=== PATIENT | male | born 1945 | race Caucasian/White ===

== ENCOUNTER 2021-03-24 19:38 | Inpatient (IN) | payer MEDICARE ==
[~2021-03-24] VITALS: Ht 182.9 cm; Wt 79.1 kg
[2021-03-24 20:11] LABS: BASOPHILS % (AUTO) 0.5 % (0-1); EOSINOPHILS # (AUTO) 0.2 X10'3 (0-0.9); EOSINOPHILS % (AUTO) 2.8 % (0-6); HEMATOCRIT 42.1 % (42.0-52.0); HEMOGLOBIN 14.4 g/dl (14.0-17.9); LYMPHOCYTES # (AUTO) 1.7 X10'3 (1.1-4.8); LYMPHOCYTES % (AUTO) 29.5 % (21-51); MEAN CORPUSCULAR HEMOGLOBIN 31.8 PG (27.0-31.0); MEAN CORPUSCULAR HGB CONC 34.2 g/dL (33.0-36.5); MEAN CORPUSCULAR VOLUME 93.1 FL (78-98); MEAN PLATELET VOLUME 8.9 FL (7.4-10.4); MONOCYTES # (AUTO) 0.4 X10'3 (0-0.9); MONOCYTES % (AUTO) 7.4 % (2-12); NEUTROPHILS # (AUTO) 3.4 X10'3 (1.8-7.7); NEUTROPHILS % (AUTO) 59.8 % (42-75); PLATELET COUNT 138 X10'3 (140-440); RED BLOOD COUNT 4.52 X10'6 (4.70-6.10); RED CELL DISTRIBUTION WIDTH 13.7 % (11.5-14.5); WHITE BLOOD COUNT 5.7 X10'3 (4.5-11.0)
[2021-03-24 20:14] LABS: ALANINE AMINOTRANSFERASE 8 U/L (12-78); ALBUMIN 3.7 G/DL (3.4-5.0); ALBUMIN/GLOBULIN RATIO 1.5 (1.1-1.5); ALKALINE PHOSPHATASE 66 IU/L (46-116); ANION GAP 10 (8-16); ASPARTATE AMINO TRANSFERASE 15 U/L (10-37); BILIRUBIN,TOTAL 0.6 MG/DL (0.1-1.0); BLOOD UREA NITROGEN 34 MG/DL (7-18); BUN/CREATININE RATIO 28.3 (5.4-32.0); CALCIUM 8.6 MG/DL (8.5-10.1); CHLORIDE 108 MMOL/L (99-107); GLUCOSE 167 MG/DL (70-104); POTASSIUM 3.8 MMOL/L (3.5-5.1); SODIUM 144 MMOL/L (135-145); TOTAL CARBON DIOXIDE 26.1 MMOL/L (24-32); TOTAL PROTEIN 6.2 G/DL (6.4-8.2); eGFR 59 ML/MIN
[2021-03-24] MEDS ORDERED: diltiazem 5mg/ml 5ml inj. IV ONE (20:40)
[2021-03-24] MEDS ORDERED: temazepam 15mg capsule PO PRN (21:00)
[2021-03-24] MEDS ORDERED: CARB-13 PO (21:38)
[2021-03-24] MEDS ORDERED: CARB-126 PO (21:40)
[2021-03-24] MEDS ORDERED: CARB1TAB23 PO (21:40)
[2021-03-24] MEDS ORDERED: diltiazem-NS 100mg/100ml 100 ML IV ONE (22:25)
[2021-03-24] MEDS ORDERED: HYDROcodone/acetaminophen 5mg/325mg tablet PO PRN (23:10)
[2021-03-24] MEDS ORDERED: diphenhydrAMINE 50 mg/ml inj IV PRN (23:10)
[2021-03-24] MEDS ORDERED: normal saline 1000ml 1,000 ML IV SCH (23:10)
[2021-03-24] MEDS ORDERED: ondansetron 4mg rapidly disintigrating tab PO PRN (23:10)
[2021-03-24] MEDS ORDERED: bisacodyl 10mg suppository rectal RC PRN (23:10)
[2021-03-24] MEDS ORDERED: mag hydrox/Alum hydrox/simeth 30ml oral suspension PO PRN (23:10)
[2021-03-24] MEDS ORDERED: diphenhydrAMINE 25mg capsule PO PRN (23:10)
[2021-03-24] MEDS ORDERED: acetaminophen 650mg rectal suppository RC PRN (23:10)
[2021-03-24] MEDS ORDERED: ondansetron/PF 4mg/2ml inj IV PRN (23:10)
[2021-03-24] MEDS ORDERED: morphine 2 MG/ML inj. syringe IV PRN ×2 (23:10)
[2021-03-24] MEDS ORDERED: HYDROcodone/acetaminophen 10/325mg tab PO PRN (23:10)
[2021-03-24] MEDS ORDERED: acetaminophen 325mg tablet PO PRN ×2 (23:10)
[2021-03-24] MEDS ORDERED: magnesium hydroxide 30ml (MOM) UD suspension PO PRN (23:10)
[2021-03-24] MEDS ORDERED: heparin 10,000 units/1 ML INJ IV PRN (23:25)
[2021-03-24] MEDS ORDERED: heparin 10,000 units/1 ML INJ IV ONE (23:25)
[2021-03-25 00:44] LABS: HEMOGLOBIN A1C 5.1 % (4.5-6.2)
[2021-03-25 00:54] LABS: ALANINE AMINOTRANSFERASE 9 U/L (12-78); ALBUMIN 3.6 G/DL (3.4-5.0); ALBUMIN/GLOBULIN RATIO 1.4 (1.1-1.5); ALKALINE PHOSPHATASE 66 IU/L (46-116); ANION GAP 10 (8-16); ASPARTATE AMINO TRANSFERASE 14 U/L (10-37); BILIRUBIN,TOTAL 0.4 MG/DL (0.1-1.0); BLOOD UREA NITROGEN 31 MG/DL (7-18); BUN/CREATININE RATIO 33.7 (5.4-32.0); CALCIUM 8.5 MG/DL (8.5-10.1); CHLORIDE 109 MMOL/L (99-107); CREATININE 0.92 MG/DL (0.60-1.10); GLUCOSE 95 MG/DL (70-104); POTASSIUM 4.1 MMOL/L (3.5-5.1); SODIUM 145 MMOL/L (135-145); TOTAL CARBON DIOXIDE 26.2 MMOL/L (24-32); TOTAL PROTEIN 6.2 G/DL (6.4-8.2); eGFR 80 ML/MIN
[2021-03-25 01:03] LABS: CHOL/HDL RATIO 3.6 (0.00-4.99); CHOLESTEROL 173 MG/DL (0-200); HDL CHOLESTEROL 48 MG/DL (35-60); LDL CHOLESTEROL 113 MG/DL (50-100); MAGNESIUM 2.1 MG/DL (1.5-2.4); PHOSPHORUS 3.6 MG/DL (2.3-4.5); TRIGLYCERIDES 73 MG/DL (20-135)
[2021-03-25 01:23] LABS: D-DIMER 0.26 MG/L FEU (0-0.50)
[2021-03-25] MEDS: heparin 25,000 UNIT/250ml bag 250 ML IV SCH ×2 (01:24→09:39)
[2021-03-25] MEDS ORDERED: CARB1TAB42 PO (01:40)
[2021-03-25] MEDS: pantoprazole 40mg Tablet.DR PO SCH (07:30)
--- NOTE | 2021-03-25 07:30 | NUR ---
dilt changed rate to 7.5mg/hr per md
[2021-03-25] MEDS: aspirin 81mg, enteric-coated 1 TAB TABLET.DR PO SCH (08:34)
[2021-03-25] MEDS: losartan 25mg tablet PO SCH (08:34)
[2021-03-25] MEDS: docusate sod 100mg capsule PO SCH ×2 (08:34→20:42)
[2021-03-25] MEDS: atorvastatin 20mg tablet PO SCH (08:35)
[2021-03-25 10:11] LABS: BASOPHILS % (AUTO) 0.6 % (0-1); EOSINOPHILS # (AUTO) 0.1 X10'3 (0-0.9); EOSINOPHILS % (AUTO) 1.6 % (0-6); HEMATOCRIT 42.9 % (42.0-52.0); HEMOGLOBIN 14.4 g/dl (14.0-17.9); LYMPHOCYTES # (AUTO) 1.1 X10'3 (1.1-4.8); LYMPHOCYTES % (AUTO) 23.5 % (21-51); MEAN CORPUSCULAR HEMOGLOBIN 31.4 PG (27.0-31.0); MEAN CORPUSCULAR HGB CONC 33.5 g/dL (33.0-36.5); MEAN CORPUSCULAR VOLUME 93.5 FL (78-98); MEAN PLATELET VOLUME 9.2 FL (7.4-10.4); MONOCYTES # (AUTO) 0.3 X10'3 (0-0.9); MONOCYTES % (AUTO) 5.7 % (2-12); NEUTROPHILS # (AUTO) 3.4 X10'3 (1.8-7.7); NEUTROPHILS % (AUTO) 68.6 % (42-75); PLATELET COUNT 136 X10'3 (140-440); RED BLOOD COUNT 4.59 X10'6 (4.70-6.10); RED CELL DISTRIBUTION WIDTH 13.8 % (11.5-14.5); WHITE BLOOD COUNT 4.9 X10'3 (4.5-11.0)
--- NOTE | 2021-03-25 10:31 | NUR ---
Hospitalist paged again. Have not received a call back yet
--- NOTE | 2021-03-25 11:37 | NUR ---
PT RESTING ON GURNEY WITH AT BEDSIDE. FAMILY MADE AWARE HOSPILALIST WOULD BE TALKING TO THEM.
[2021-03-25] MEDS ORDERED: carbidopa/levodopa 10/100mg tab PO SCH (12:00)
[2021-03-25] MEDS ORDERED: carbidopa/levodopa 50/200mg CR tablet PO SCH (13:00)
[2021-03-25] MEDS: metoprolol tartrate 25mg tablet PO SCH ×2 (13:29→20:42)
--- NOTE | 2021-03-25 13:55 | NUR ---
pt enjoying lunch tray with assistance from family at bedside
--- NOTE | 2021-03-25 15:59 | NUR ---
Report received from Timmy BLAKE in the ED. During report she said she was not going to titrate heparin drip per protocol for Cardiac PTT that was drawn at 1430, and she was "just going to send him up". Charge nurse notified on unit that heparin protocol is non therapeutic and not being titrated per protocol.
[2021-03-25 16:20] VITALS: BP 118/66
--- NOTE | 2021-03-25 16:20 | NUR ---
Note to pharmacist per family request. This is the schedule that the patient needs to be on for his Sinemet per family otherwise he will have problems. Carbidopa/Levodopa 10/100mg PO 1 tab q 0600, 1000, 1400, 1800 Carbidopa/Levodopa 50/200mg PO 1 tab q 0600, 1000, 1400, 1800 Thank you please fix, patient takes both dosages at the same time. Thank you, Marcela [facility] [phone]
[2021-03-25 17:32] VITALS: BP 98/66
[2021-03-25] MEDS: carbidopa/levodopa 10/100mg tab PO SCH (17:58)
[2021-03-25] MEDS: carbidopa/levodopa 50/200mg CR tablet PO SCH (17:58)
[2021-03-25 18:00] VITALS: BP 93/50
[2021-03-25] MEDS ORDERED: diltiazem-NS 100mg/100ml 100 ML IV SCH (18:25)
--- NOTE | 2021-03-25 18:32 | NUR ---
Problems reprioritized. Patient report given, questions answered & plan of care reviewed with Funmi BLAKE.
[2021-03-25 20:00] VITALS: BP 118/60
[2021-03-25] MEDS ORDERED: LORazepam 2 mg/ml vial IV PRN (22:50)
[2021-03-25 23:00] VITALS: BP 149/93
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
[2021-03-26 02:00] VITALS: BP 138/77
[2021-03-26] MEDS: heparin 25,000 UNIT/250ml bag 250 ML IV SCH (02:31)
[2021-03-26 04:00] VITALS: BP 156/70
[2021-03-26] MEDS: carbidopa/levodopa 50/200mg CR tablet PO SCH ×2 (05:41→10:55)
[2021-03-26] MEDS: carbidopa/levodopa 10/100mg tab PO SCH ×2 (05:41→10:55)
[2021-03-26 06:16] LABS: BASOPHILS % (AUTO) 0.9 % (0-1); EOSINOPHILS # (AUTO) 0.1 X10'3 (0-0.9); EOSINOPHILS % (AUTO) 2.3 % (0-6); HEMATOCRIT 45.2 % (42.0-52.0); HEMOGLOBIN 15.6 g/dl (14.0-17.9); LYMPHOCYTES # (AUTO) 1.2 X10'3 (1.1-4.8); LYMPHOCYTES % (AUTO) 25.4 % (21-51); MEAN CORPUSCULAR HEMOGLOBIN 31.8 PG (27.0-31.0); MEAN CORPUSCULAR HGB CONC 34.6 g/dL (33.0-36.5); MEAN CORPUSCULAR VOLUME 91.9 FL (78-98); MEAN PLATELET VOLUME 8.5 FL (7.4-10.4); MONOCYTES # (AUTO) 0.4 X10'3 (0-0.9); MONOCYTES % (AUTO) 8.9 % (2-12); NEUTROPHILS % (AUTO) 62.5 % (42-75); PLATELET COUNT 140 X10'3 (140-440); RED BLOOD COUNT 4.92 X10'6 (4.70-6.10); RED CELL DISTRIBUTION WIDTH 13.8 % (11.5-14.5); WHITE BLOOD COUNT 4.8 X10'3 (4.5-11.0)
[2021-03-26 06:31] LABS: ALANINE AMINOTRANSFERASE 16 U/L (12-78); ALBUMIN/GLOBULIN RATIO 1.3 (1.1-1.5); ALKALINE PHOSPHATASE 55 IU/L (46-116); ANION GAP 8 (8-16); ASPARTATE AMINO TRANSFERASE 20 U/L (10-37); BILIRUBIN,TOTAL 0.7 MG/DL (0.1-1.0); BLOOD UREA NITROGEN 20 MG/DL (7-18); BUN/CREATININE RATIO 22.5 (5.4-32.0); CALCIUM 8.9 MG/DL (8.5-10.1); CHLORIDE 107 MMOL/L (99-107); CREATININE 0.89 MG/DL (0.60-1.10); GLUCOSE 89 MG/DL (70-104); SODIUM 144 MMOL/L (135-145); TOTAL CARBON DIOXIDE 28.9 MMOL/L (24-32); TOTAL PROTEIN 7.1 G/DL (6.4-8.2); eGFR 83 ML/MIN
[2021-03-26 07:00] VITALS: BP 151/78
--- NOTE | 2021-03-26 07:47 | NUR ---
Patient in room PCU 3020. I have received report from SHONA BLAKE and had the opportunity to ask questions and assume patient care.
[2021-03-26] MEDS: docusate sod 100mg capsule PO SCH (08:00)
[2021-03-26] MEDS: metoprolol tartrate 25mg tablet PO SCH (08:05)
[2021-03-26 08:06] VITALS: BP_SYST 146
[2021-03-26] MEDS: aspirin 81mg, enteric-coated 1 TAB TABLET.DR PO SCH (08:06)
[2021-03-26] MEDS: losartan 25mg tablet PO SCH (08:06)
[2021-03-26] MEDS: atorvastatin 20mg tablet PO SCH (08:06)
[2021-03-26] MEDS: pantoprazole 40mg Tablet.DR PO SCH (08:06)
--- NOTE | 2021-03-26 09:08 | NUR ---
Patient calm and pleasant this morning, stated he "didn't sleep well' last night, A&Ox4, but slow to answer questions. Family at bedside, states he is eager to go home today.
[2021-03-26] MEDS ORDERED: APIX5TAB3 PO (12:35)
[2021-03-26] MEDS ORDERED: METO-395 PO (12:35)
--- NOTE | 2021-03-26 14:09 | NUR ---
Patient is stable for discharge per MD order, all discharge instructions reviewed with patient and all questions answered. New prescriptions faxed into pharmacy. PIV discontinued, cannula intact. Telemetry discontinued, teletype mechanic notified. All belongings collected and sent with patient. Pt picked up b in private vehicle, wheeled to lobby by staff.
== END 2021-03-26 13:38 | disposition home or self-care (01) | DRG 309 ==
LOC: ER 19:39 → ED HOLD 23:22 → PCU 3S 03-25 16:15
PROVIDERS: ADMIT Family Medicine; ATTEND Family Medicine
DX: I48.91 Unspecified atrial fibrillation (principal); N17.9 Acute kidney failure, unspecified; I50.22 Chronic systolic (congestive) heart failure; E78.5 Hyperlipidemia, unspecified; G20 Parkinson's disease; I48.92 Unspecified atrial flutter; I11.0 Hypertensive heart disease with heart failure; I25.10 Atherosclerotic heart disease of native coronary artery without angina pectoris; I69.320 Aphasia following cerebral infarction; Z88.8 Allergy status to other drugs, medicaments and biological substances; Z79.899 Other long term (current) drug therapy
CPT/HCPCS: 36415; 71045; 80053; 80061; 83036; 83735; 83880; 84100; 84484; 85025; 85379; 85730; 87081; 93005; 93306; 96365; 96376; 99285; G0378; J1644; J3490; J7030

== ENCOUNTER 2021-07-10 06:58 | Inpatient (IN) | payer MEDICARE ==
[~2021-07-10] VITALS: Ht 182.9 cm; Wt 75.9 kg
[~2021-07-10 06:58] MED LIST: APIX5TAB3 PO; CARB-13 PO; CARB1TAB42 PO; METO-395 PO
[2021-07-10] MEDS ORDERED: normal saline 1000ml 1,000 ML IV ONE (07:20)
[2021-07-10 07:50] LABS: BASOPHILS % (AUTO) 0.1 % (0-1); EOSINOPHILS % (AUTO) 0 % (0-6); HEMATOCRIT 43.6 % (42.0-52.0); HEMOGLOBIN 14.7 g/dl (14.0-17.9); LYMPHOCYTES # (AUTO) 0.9 X10'3 (1.1-4.8); LYMPHOCYTES % (AUTO) 4.7 % (21-51); MEAN CORPUSCULAR HEMOGLOBIN 30.8 PG (27.0-31.0); MEAN CORPUSCULAR HGB CONC 33.7 g/dL (33.0-36.5); MEAN CORPUSCULAR VOLUME 91.2 FL (78-98); MEAN PLATELET VOLUME 8.3 FL (7.4-10.4); MONOCYTES # (AUTO) 1.4 X10'3 (0-0.9); MONOCYTES % (AUTO) 7.4 % (2-12); NEUTROPHILS # (AUTO) 16.3 X10'3 (1.8-7.7); NEUTROPHILS % (AUTO) 87.8 % (42-75); PLATELET COUNT 187 X10'3 (140-440); RED BLOOD COUNT 4.78 X10'6 (4.70-6.10); RED CELL DISTRIBUTION WIDTH 12.8 % (11.5-14.5); WHITE BLOOD COUNT 18.6 X10'3 (4.5-11.0)
[2021-07-10 07:55] LABS: ALANINE AMINOTRANSFERASE 9 U/L (12-78); ALBUMIN 3.4 G/DL (3.4-5.0); ALBUMIN/GLOBULIN RATIO 0.9 (1.1-1.5); ALKALINE PHOSPHATASE 53 IU/L (46-116); ANION GAP 7 (8-16); ASPARTATE AMINO TRANSFERASE 16 U/L (10-37); BILIRUBIN,TOTAL 0.6 MG/DL (0.1-1.0); BLOOD UREA NITROGEN 36 MG/DL (7-18); BUN/CREATININE RATIO 21.1 (5.4-32.0); CALCIUM 9.2 MG/DL (8.5-10.1); CHLORIDE 103 MMOL/L (99-107); CREATININE 1.71 MG/DL (0.60-1.10); GLUCOSE 145 MG/DL (70-104); POTASSIUM 5.2 MMOL/L (3.5-5.1); SODIUM 137 MMOL/L (135-145); TOTAL CARBON DIOXIDE 27.2 MMOL/L (24-32); eGFR 39 ML/MIN
[2021-07-10 08:05] LABS: MAGNESIUM 1.8 MG/DL (1.5-2.4)
[2021-07-10] MEDS ORDERED: CefTRIAXone/D5W-Rocephin 1gm 50 ML IV ONE (08:05)
[2021-07-10] MEDS ORDERED: azithromycin/NS 500mg/250ml 250 ML IV ONE (08:15)
[2021-07-10 08:23] LABS: PLATELET ESTIMATE NORMAL; TOTAL CELLS COUNTED 100
[2021-07-10] MEDS ORDERED: acetaminophen 325mg tablet PO PRN (09:05)
[2021-07-10] MEDS ORDERED: HYDROcodone/acetaminophen 5mg/325mg tablet PO PRN (09:05)
[2021-07-10] MEDS ORDERED: ondansetron/PF 4mg/2ml inj IV PRN (09:05)
[2021-07-10] MEDS ORDERED: morphine 2 MG/ML inj. syringe IV PRN (09:05)
[2021-07-10] MEDS: normal saline 1000ml 1,000 ML IV SCH ×2 (09:05→19:05)
[2021-07-10 09:12] LABS: CLARITY,URINE CLEAR (Clear); GLUCOSE, URINE NEGATIVE (Neg); KETONES,URINE TRACE mg/dl (Neg); LEUKOCYTE ESTERASE ,URINE NEGATIVE (Neg); NITRITES, URINE NEGATIVE (Neg); OCCULT BLOOD,URINE NEGATIVE (Neg); PH,URINE 5.5 (4.8-8.0); PROTEIN,URINE NEGATIVE (Neg); UA COLLECTION TYPE NON-SPECIFIED; UROBILINOGEN,URINE 0.2 E.U/dL (0.2-1.0)
[2021-07-10 09:13] LABS: COLOR,URINE DARK YELLOW (Yellow)
[2021-07-10] MEDS ORDERED: METO-395 PO (13:21)
[2021-07-10] MEDS ORDERED: ROPI1TAB6 PO (13:21)
[2021-07-10] MEDS ORDERED: APIX5TAB3 PO (13:21)
[2021-07-10 15:10] VITALS: BP 122/79
--- NOTE | 2021-07-10 15:15 | NUR ---
Pt. arrived and oriented to the floor. Pt. alert oriented and appropriate; All strengths are equal and vital signs are stable [facility]
[2021-07-10] MEDS ORDERED: CARB-13 PO (16:15)
[2021-07-10] MEDS ORDERED: NIA500ERT PO (16:34)
--- NOTE | 2021-07-10 16:50 | NUR ---
Med REC completed and hospitalist paged to finalize orders. [facility]
[2021-07-10 18:00] VITALS: BP 129/78
--- NOTE | 2021-07-10 18:24 | NUR ---
Problems reprioritized. Patient report given to Theodora BLAKE, questions answered & plan of care reviewed with Theodora BLAKE
[2021-07-10] MEDS ORDERED: heparin, porcine 5000 units/ml vial SQ SCH (20:00)
[2021-07-10] MEDS ORDERED: temazepam 15mg capsule PO PRN (21:00)
[2021-07-10] MEDS: dexamethasone 4mg/ml inj IV SCH (21:22)
[2021-07-10 22:00] VITALS: BP 118/69
[2021-07-10] MEDS ORDERED: carbidoba-levodopa 25-100mg tablet PO SCH (22:45)
[2021-07-10] MEDS: carbidopa/levodopa 50/200mg CR tablet PO SCH (23:37)
[2021-07-10] MEDS: carbidopa/levodopa 10/100mg tab PO SCH (23:37)
[2021-07-11] VITALS (7 sets, daily range): BP systolic 96–151; BP diastolic 56–88
[2021-07-11] MEDS: normal saline 1000ml 1,000 ML IV SCH ×2 (05:23→15:36)
[2021-07-11 07:35] LABS: BASOPHILS % (AUTO) 0.1 % (0-1); EOSINOPHILS % (AUTO) 0 % (0-6); HEMATOCRIT 40.3 % (42.0-52.0); HEMOGLOBIN 13.4 g/dl (14.0-17.9); LYMPHOCYTES # (AUTO) 0.6 X10'3 (1.1-4.8); LYMPHOCYTES % (AUTO) 4.2 % (21-51); MEAN CORPUSCULAR HEMOGLOBIN 30.5 PG (27.0-31.0); MEAN CORPUSCULAR HGB CONC 33.4 g/dL (33.0-36.5); MEAN CORPUSCULAR VOLUME 91.4 FL (78-98); MEAN PLATELET VOLUME 8.8 FL (7.4-10.4); MONOCYTES # (AUTO) 0.3 X10'3 (0-0.9); MONOCYTES % (AUTO) 2.1 % (2-12); NEUTROPHILS # (AUTO) 14.3 X10'3 (1.8-7.7); NEUTROPHILS % (AUTO) 93.6 % (42-75); PLATELET COUNT 174 X10'3 (140-440); RED BLOOD COUNT 4.41 X10'6 (4.70-6.10); RED CELL DISTRIBUTION WIDTH 13.4 % (11.5-14.5); WHITE BLOOD COUNT 15.3 X10'3 (4.5-11.0)
[2021-07-11] MEDS: carbidopa/levodopa 50/200mg CR tablet PO SCH ×4 (07:35→21:24)
[2021-07-11] MEDS: azithromycin/NS 500mg/250ml 250 ML IV SCH (07:42)
[2021-07-11] MEDS: dexamethasone 4mg/ml inj IV SCH ×2 (07:42→21:24)
[2021-07-11] MEDS: CefTRIAXone 2gm/D5W 50ml BAG 50 ML IV SCH (07:42)
[2021-07-11] MEDS: carbidopa/levodopa 10/100mg tab PO SCH ×4 (07:54→21:24)
[2021-07-11 08:01] LABS: ALANINE AMINOTRANSFERASE 8 U/L (12-78); ALBUMIN 2.8 G/DL (3.4-5.0); ALKALINE PHOSPHATASE 52 IU/L (46-116); ANION GAP 6 (8-16); ASPARTATE AMINO TRANSFERASE 25 U/L (10-37); BILIRUBIN,TOTAL 0.4 MG/DL (0.1-1.0); BLOOD UREA NITROGEN 23 MG/DL (7-18); BUN/CREATININE RATIO 33.3 (5.4-32.0); CALCIUM 8.5 MG/DL (8.5-10.1); CHLORIDE 108 MMOL/L (99-107); CREATININE 0.69 MG/DL (0.60-1.10); GLUCOSE 139 MG/DL (70-104); SODIUM 140 MMOL/L (135-145); TOTAL CARBON DIOXIDE 25.8 MMOL/L (24-32); TOTAL PROTEIN 5.7 G/DL (6.4-8.2); eGFR > 90 ML/MIN
[2021-07-11] MEDS: metoprolol succinate 25mg (24-HOUR) SR. Tablet PO SCH (08:40)
[2021-07-11] MEDS: apixaban 5mg tablet PO SCH ×2 (08:41→21:24)
[2021-07-11] MEDS ORDERED: metoprolol tartrate 1mg/ml inj IV ONE (11:55)
--- NOTE | 2021-07-11 12:33 | NUR ---
Malnutrition Consult: Pt admit DX COVID-19 PNA per EMR. Pt reports 2-13 pounds wt loss per RN Malnutrition Screen. Pt has mild weakness, no edema/wounds, no scaled wt this admit or scaled wt hx, and PO 44% avg first two heart healthy meals per EMR. Likely some decreased PO intake [employer] however pt lacks minimum two malnutrition criteria at this time. Will monitor for nutrition intervention needs this admit. Addendum: 07/11/21 at [address] Amended: Links added.
[2021-07-11] MEDS ORDERED: diltiazem 5mg/ml 5ml inj. IV ONE (12:45)
[2021-07-11] MEDS: metoprolol tartrate 12.5mg (1/2 tablet) PO SCH ×2 (13:35→21:24)
--- NOTE | 2021-07-11 18:12 | NUR ---
Problems reprioritized. Patient report given, questions answered & plan of care reviewed with Braeden BLAKE.
[2021-07-11] MEDS: ROPINIRole 1mg tablet PO SCH (21:24)
--- NOTE | 2021-07-11 23:19 | NUR ---
states patient is very paranoid. req to know what medicaiton he received and if anything given for anxiety. no medications given out of normal meds from home. closed door since there was a lot of activity and noise at station for another patient. across from station. will monitor
--- NOTE | 2021-07-12 05:56 | NUR ---
daughter donnie arrived. pt's stayed the night. pt did well. HR trending down into 90's.
--- NOTE | 2021-07-12 06:52 | NUR ---
Patient in room ORTHO 4010. I have received report from Braeden BLAKE and had the opportunity to ask questions and assume patient care.
[2021-07-12 06:59] VITALS: BP 132/78
[2021-07-12] MEDS: azithromycin/NS 500mg/250ml 250 ML IV SCH (07:26)
[2021-07-12] MEDS: CefTRIAXone 2gm/D5W 50ml BAG 50 ML IV SCH (07:26)
[2021-07-12] MEDS: carbidopa/levodopa 10/100mg tab PO SCH (07:26)
[2021-07-12] MEDS: carbidopa/levodopa 50/200mg CR tablet PO SCH (07:27)
[2021-07-12] MEDS: metoprolol succinate 25mg (24-HOUR) SR. Tablet PO SCH (07:27)
[2021-07-12] MEDS: apixaban 5mg tablet PO SCH (07:27)
[2021-07-12] MEDS: metoprolol tartrate 12.5mg (1/2 tablet) PO SCH (07:29)
[2021-07-12] MEDS: ROPINIRole 1mg tablet PO SCH (07:30)
[2021-07-12] MEDS: dexamethasone 4mg/ml inj IV SCH (07:30)
[2021-07-12] MEDS ORDERED: metoprolol tartrate 50mg tablet PO SCH (08:00)
[2021-07-12 08:20] LABS: BASOPHILS % (AUTO) 0.1 % (0-1); EOSINOPHILS % (AUTO) 0 % (0-6); HEMATOCRIT 37.8 % (42.0-52.0); HEMOGLOBIN 12.6 g/dl (14.0-17.9); LYMPHOCYTES # (AUTO) 0.6 X10'3 (1.1-4.8); LYMPHOCYTES % (AUTO) 4.6 % (21-51); MEAN CORPUSCULAR HEMOGLOBIN 30.5 PG (27.0-31.0); MEAN CORPUSCULAR HGB CONC 33.3 g/dL (33.0-36.5); MEAN CORPUSCULAR VOLUME 91.8 FL (78-98); MONOCYTES # (AUTO) 0.4 X10'3 (0-0.9); MONOCYTES % (AUTO) 2.8 % (2-12); NEUTROPHILS # (AUTO) 12.7 X10'3 (1.8-7.7); NEUTROPHILS % (AUTO) 92.5 % (42-75); PLATELET COUNT 177 X10'3 (140-440); RED BLOOD COUNT 4.12 X10'6 (4.70-6.10); RED CELL DISTRIBUTION WIDTH 13.2 % (11.5-14.5); WHITE BLOOD COUNT 13.7 X10'3 (4.5-11.0)
[2021-07-12 08:44] LABS: ALANINE AMINOTRANSFERASE 11 U/L (12-78); ALBUMIN 2.5 G/DL (3.4-5.0); ALBUMIN/GLOBULIN RATIO 0.9 (1.1-1.5); ALKALINE PHOSPHATASE 50 IU/L (46-116); ANION GAP 9 (8-16); ASPARTATE AMINO TRANSFERASE 19 U/L (10-37); BILIRUBIN,TOTAL 0.3 MG/DL (0.1-1.0); BLOOD UREA NITROGEN 26 MG/DL (7-18); BUN/CREATININE RATIO 32.9 (5.4-32.0); CHLORIDE 109 MMOL/L (99-107); CREATININE 0.79 MG/DL (0.60-1.10); GLUCOSE 132 MG/DL (70-104); POTASSIUM 4.2 MMOL/L (3.5-5.1); SODIUM 143 MMOL/L (135-145); TOTAL CARBON DIOXIDE 25.5 MMOL/L (24-32); TOTAL PROTEIN 5.2 G/DL (6.4-8.2); eGFR > 90 ML/MIN
[2021-07-12 10:00] VITALS: BP 139/75
[2021-07-12] MEDS ORDERED: metoprolol tartrate 12.5mg (1/2 tablet) PO STA (10:23)
[2021-07-12 10:40] LABS: D-DIMER 0.24 MG/L FEU (0-0.50)
[2021-07-12 10:42] LABS: C-REACTIVE PROTEIN 8.45 MG/DL (0.0-0.5)
[2021-07-12 10:53] VITALS: BP_SYST 139
[2021-07-12] MEDS ORDERED: PRED20TA PO (12:13)
[2021-07-12] MEDS ORDERED: METO-395 PO (12:13)
[2021-07-12] MEDS ORDERED: LEVO500T90 PO (12:13)
== END 2021-07-12 13:15 | disposition home health service (06) | DRG 871 ==
LOC: ER 06:59 → ED HOLD 09:12 → ORTHO 4S 14:55
PROVIDERS: ADMIT Internal Medicine; ATTEND Family Medicine
DX: A41.9 Sepsis, unspecified organism (principal); U07.1 COVID-19; J12.82 Pneumonia due to coronavirus disease 2019; J15.9 Unspecified bacterial pneumonia; N17.9 Acute kidney failure, unspecified; N18.30 Chronic kidney disease, stage 3 unspecified; E86.0 Dehydration; E87.5 Hyperkalemia; G20 Parkinson's disease; W01.0XXA Fall on same level from slipping, tripping and stumbling without subsequent striking against object, initial encounter; R29.6 Repeated falls; I12.9 Hypertensive chronic kidney disease with stage 1 through stage 4 chronic kidney disease, or unspecified chronic kidney disease; I48.91 Unspecified atrial fibrillation; Z79.01 Long term (current) use of anticoagulants; Z86.73 Personal history of transient ischemic attack (TIA), and cerebral infarction without residual deficits; Z95.2 Presence of prosthetic heart valve; Z88.8 Allergy status to other drugs, medicaments and biological substances; Y93.89 Activity, other specified; Y92.098 Other place in other non-institutional residence as the place of occurrence of the external cause; Y99.8 Other external cause status; Z79.899 Other long term (current) drug therapy
CPT/HCPCS: 36415; 70450; 71045; 72125; 80053; 81003; 83605; 83735; 83880; 84145; 84484; 85007; 85025; 85379; 85610; 86140; 87040; 87081; 87635; 93005; 93306; 96361; 96365; 96368; 99285; C9803; G0378; J0456; J0696; J1100; J1644; J3490; J7030